=== PATIENT | female | born 1995 | race Caucasian/White ===

== ENCOUNTER 2017-02-26 | Inpatient (IN) ==
[2017-03-03] MEDS ORDERED: LIDOCAINE 1% (10mg/ml) 2mL INJ PF SDV ID PRN (16:05)
[2017-03-03] MEDS ORDERED: MAG-AL + SIM ORAL LIQUID 30ml PO PRN (16:05)
[2017-03-03] MEDS ORDERED: CALCIUM CARBONATE Chewable 500mg TABLET PO PRN (16:05)
[2017-03-03] MEDS ORDERED: CARBOPROST 250 MCG/ML INJECTION IM PRN (16:05)
[2017-03-03] MEDS ORDERED: METHYLERGONOVINE 0.2 MG/ML INJECTION IM PRN (16:05)
[2017-03-03] MEDS ORDERED: ACETAMINOPHEN 500 MG TABLET PO PRN (16:05)
[2017-03-03] MEDS ORDERED: SALINE FLUSH 10ml SYRINGE IV PRN ×2 (16:09→18:41)
[2017-03-03] MEDS ORDERED: ZOLPIDEM 5 MG TABLET PO PRN (16:09)
[2017-03-03] MEDS: Oxycodone/Acetaminophen 5/325 1 TAB PO PRN ×2 (18:35→22:35)
[2017-03-03 20:04] VITALS: BMI 29.7
--- NOTE | 2017-03-04 05:54 | Labor and Delivery Note ---
- Labor and Delivery Labor and Delivery: Pt slept. Acuna bulb came out when she got up. Breakfast, then start oxytocin.
[2017-03-04] MEDS ORDERED: OXYTOCIN DRIP 30 UNIT/500 ML ML IV PRN (06:45)
[2017-03-04] MEDS ORDERED: D5LR 1,000 ML IV PRN (06:45)
[2017-03-04] MEDS: LR 1,000 ML IV PRN ×3 (06:56→11:50)
[2017-03-04] MEDS ORDERED: CARBOPROST 250 MCG/ML INJECTION IM PRN (08:35)
[2017-03-04] MEDS ORDERED: MAG-AL + SIM ORAL LIQUID 30ml PO PRN ×2 (08:35→08:42)
[2017-03-04] MEDS ORDERED: METHYLERGONOVINE 0.2 MG/ML INJECTION IM PRN (08:35)
[2017-03-04] MEDS ORDERED: CALCIUM CARBONATE Chewable 500mg TABLET PO PRN ×2 (08:35→16:05)
[2017-03-04] MEDS ORDERED: BUTORPHANOL 2 MG/ML INJECTION IVP PRN ×3 (08:35→08:51)
[2017-03-04] MEDS ORDERED: ACETAMINOPHEN 500 MG TABLET PO PRN ×2 (08:35→16:05)
--- NOTE | 2017-03-04 10:11 | Anesthesia Preoperative Report ---
Anesthesia Epidural/Spinal Rec - Date and Time Date: 03/04/17 Preoperative Diagnosis: Term Labor SROM Procedure: Labor Epidural Plan: Epidural - Vital Signs Vital Signs: Temperature 97.9 F 03/03/17 21:20 Pulse Rate 73 03/03/17 21:20 Respiratory Rate 18 03/03/17 21:20 Blood Pressure 103/61 03/03/17 21:20 Pulse Oximetry 99 03/03/17 16:15 /Para: P:0 - Medictaions & Allergies Inpatient Medications: Current Medications Acetaminophen (Tylenol) 500 - 1,000 mg PO Q4H PRN PRN Reason: Pain Acetaminophen (Tylenol) 500 - 1,000 mg PO Q4H PRN PRN Reason: Pain Al Hydroxide/Mg Hydroxide (Maalox Plus) 30 ml PO Q3H PRN PRN Reason: Indigestion Al Hydroxide/Mg Hydroxide (Maalox Plus) 30 ml PO Q3H PRN PRN Reason: Indigestion Al Hydroxide/Mg Hydroxide (Maalox Plus) 30 ml PO Q3H PRN PRN Reason: Indigestion Butorphanol Tartrate (Stadol Inj) 1 mg IVP Q1H PRN Last Admin: 03/04/17 08:52 Dose: 1 mg Calcium Carbonate (Tums) 500 - 1,000 mg PO Q2H PRN PRN Reason: Indigestion Calcium Carbonate (Tums) 500 - 1,000 mg PO Q2H PRN PRN Reason: Indigestion Carboprost Tromethamine (Hemabate) 250 mcg IM O PRN PRN Reason: .Downtime Carboprost Tromethamine (Hemabate) 250 mcg IM O PRN PRN Reason: .Downtime Lactated Ringer's (Lactated Ringers) 1,000 mls @ 999 mls/hr IV .Q1H1M PRN Last Admin: 03/04/17 09:09 Dose: 999 mls/hr Dextrose/Lactated Ringer's (Dextrose 5%-Lactated Ringers) 1,000 mls @ 125 mls/ hr IV .Q8H PRN PRN Reason: Labor Last Admin: 03/04/17 06:58 Dose: 125 mls/hr Oxytocin (Pitocin Drip) 30 unit in 500 mls @ 2 mls/hr IV .Q24H PRN; Protocol PRN Reason: Induction/Augmentation Last Admin: 03/04/17 07:10 Dose: 2 mls/hr Lidocaine HCl (Xylocaine-Mpf 1% Vial) 0.2 mg ID O PRN PRN Reason: IV Start Methylergonovine Maleate (Methergine) 0.2 mg IM O PRN Methylergonovine Maleate (Methergine) 0.2 mg IM O PRN Misoprostol (Cytotec) 800 mcg MS ONCE PRN Misoprostol (Cytotec) 800 mcg MS ONCE PRN Misoprostol (Cytotec) 800 mcg MS ONCE PRN Oxycodone/Acetaminophen (Percocet 5/325) 1 tab PO Q4H PRN PRN Reason: Pain Last Admin: 03/03/17 22:35 Dose: 1 tab Sodium Chloride (Iv Flush) 10 - 80 ml IV PRN PRN PRN Reason: Flushing Last Admin: 03/04/17 06:53 Dose: 10 ml Sodium Chloride (Iv Flush) 10 - 80 ml IV PRN PRN PRN Reason: Flushing Zolpidem Tartrate (Ambien) 5 mg PO O PRN PRN Reason: Insomnia Last Admin: 03/03/17 21:25 Dose: 5 mg Allergies/Adverse Reactions: Allergies Allergy/AdvReac Type Severity Reaction Status Date / Time hydrocodone Allergy Intermediate Nausea and Verified 01/31/17 08:14 Vomiting - Home Medications Home Medications: Home Medications Medication Instructions Recorded Confirmed Type Pnv95/Ferrous Fumarate/FA 1 tab PO DAILY #0 11/03/15 History [ Tablet] - Medical History Neuro/Musculoskeletal: Reports: Seizures (isolated x1 as a child no meds no followup) Other History: Reports: Now DENIES: Anesthesia Reactions - Surgical History Anesthesia Reactions: None Hx Family Anesthesia Reaction: No History of Motion Sickness: No - Social History Smoking Status: Former smoker Substance Use Type: does not use - Pertinent Findings Lab Data: CBC and BMP 03/03/17 16:30 EKG Rhythm: Normal Sinus Rhythm - Physical Exam Respiratory Exam: lungs clear, bilateral breath sounds equal Cardiovascular Exam: regular rate and rhythm, no murmur - Airway Assessment Mallampati Score: II TMD: 3 Fingerbreadths Neck Extension: good Overall Assessment: may be difficult intubation - ASA ASA Score: 2 - Discussion Discussion: Discussed risks/options/alternatives of anesthesia and questions answered. Patient consents. Nursing pain assessment noted. Anesthesia Discussion: spouse Attestation Statement: Prior to the delivery of any anesthetic medication, I examined the patient, developed the plan, obtained the patient's consent and discussed the risk and benefits of the procedure with the patient/guardian.
[2017-03-04] MEDS ORDERED: DiphenhydrAMINE 50 MG/ML INJECTION IVP PRN ×2 (10:13→14:23)
[2017-03-04] MEDS ORDERED: ROPIVACAINE 1% 10MG/ML INJ 200 MG, SUFentanil 50 MCG in NS 100 ML EPI PRN (10:13)
[2017-03-04] MEDS ORDERED: ONDANSETRON 4 MG/2 ML INJECTION IVP PRN ×3 (10:13→21:02)
[2017-03-04] MEDS ORDERED: NALOXONE 0.4 MG/ML INJECTION IVP PRN (10:13)
--- NOTE | 2017-03-04 10:48 | Labor and Delivery Note ---
- Labor and Delivery Labor and Delivery: FHTs Cat 2 after a prolonged decel. Oxytocin back on with no change in cervical exam. Pt comfortable with epidural.
--- NOTE | 2017-03-04 13:24 | Labor and Delivery Note ---
- Labor and Delivery Labor and Delivery: Ctxs became regular off oxytocin but have now spaced out. Her cervix remains 3cm /80%/-3/posterior. FHTs Category 2. Will resume oxytocin, consider IUPM, cont to monitor FHR.
[2017-03-04] MEDS ORDERED: CITRIC ACID/SODIUM CITRATE 30ml PO ONE (14:01)
[2017-03-04] MEDS ORDERED: CEFAZOLIN PREMIX (MC ONLY) 2 GM/50 ML BAG IV ONE (14:01)
[2017-03-04] MEDS ORDERED: FAMOTIDINE PB 20 MG/50 ML BAG IV ONE (14:01)
[2017-03-04] MEDS ORDERED: LIDOCAINE 2%/EPI 1:200,000 20ml SDV PF ONE (14:05)
[2017-03-04] MEDS ORDERED: ONDANSETRON 4 MG/2 ML INJECTION ONE (14:06)
[2017-03-04] MEDS ORDERED: TRANEXAMIC ACID 1,000 MG in NS 100 ML IV ONE (14:09)
[2017-03-04] MEDS ORDERED: NALOXONE 2 MG/2 ML INJECTION PFS IVP PRN (14:23)
[2017-03-04] MEDS ORDERED: AZITHROMYCIN IV 500 MG in NS 250ml 250 ML IV SCH (14:35)
[2017-03-04] MEDS: OXYTOCIN BOLUS BAG 30 UNIT/500 ML ML IV SCH ×2 (14:54→15:20)
[2017-03-04] MEDS ORDERED: FentaNYL 100 MCG/2 ML INJECTION ONE (14:59)
[2017-03-04] MEDS ORDERED: DiphenhydrAMINE 50 MG/ML INJECTION ONE (15:26)
[2017-03-04] MEDS ORDERED: HYDROMORPHONE PCA 30mg/30ml VIAL IV PRN (15:39)
[2017-03-04] MEDS ORDERED: OXYTOCIN DRIP 30 UNIT/500 ML ML IV SCH (16:05)
[2017-03-04] MEDS ORDERED: SALINE FLUSH 10ml SYRINGE IV PRN (16:05)
[2017-03-04] MEDS ORDERED: DiphenhydrAMINE 25 MG CAPSULE PO PRN (16:05)
[2017-03-04] MEDS ORDERED: HYDROCORTISONE 2.5% CREAM 30gm RECTALLY PRN (16:05)
[2017-03-04] MEDS: D5LR 1,000 ML IV SCH (17:55)
[2017-03-04] MEDS: IBUPROFEN 800 MG TABLET PO SCH (18:04)
--- NOTE | 2017-03-04 18:28 | Operative Note ---
DATE OF DELIVERY 03/04/2017 PREOPERATIVE DIAGNOSIS Nonreassuring status remote from delivery. POSTOPERATIVE DIAGNOSIS Nonreassuring status remote from delivery. PROCEDURES Primary low transverse section. SURGEON Katty Black MD MRI MANAGER Piyush King MD ANESTHESIA Continuous epidural. ANESTHESIOLOGIST Tao Lizama CRNA EBL 800 mL. DESCRIPTION OF PROCEDURE Ms. Schmid was brought to the OR and placed on the OR table in a comfortable supine position with left lateral displacement. A Acuna catheter had previously been placed to dependent drain. The abdomen was prepped and draped in the usual sterile fashion. A Pfannenstiel skin incision was made with a sharp knife. This was carried down to fascia. Fascia was incised transversely. Fascia was then tented up. This was bluntly and sharply dissected free of rectus muscles. Rectus muscles were bluntly divided. The peritoneum was tented up and sharply entered, then extended vertically. The bladder blade was inserted. The bladder was noted to be well below our area of operation. A low transverse uterine incision was made with a sharp knife. The baby was delivered in the vertex NELI presentation with quite a bit of difficulty. I used bandage scissors and made a vertical T incision of only about 1 cm. I really feel that we stayed in the lower uterine segment with this and do not believe this would affect future deliveries. I then used bandage scissors and extended the skin incision a bit. There was a loose nuchal cord the baby delivered through. Baby was then bulb suctioned on the abdomen. Cord was doubly clamped and cut and the baby was given to Dr. Collazo and his team for care. This is a liveborn female. Her Apgars were 2/8/9. I believe the difficulty of the delivery and compression of the umbilical cord explains the initial difficulty in reviving baby but she did revive quickly fortunately. The placenta was then removed manually intact. It had a normal configuration and normal-appearing three-vessel cord. Because the patient was uncomfortable we did not exteriorize the uterus but swept the uterine cavity clear of membranes. We then reapproximated the transverse incision with a running locking 0-Monocryl. The vertical portion was reapproximated with a [id number] suture of 0-Monocryl. There was an area on the patient's right that was bleeding that was secured with a [id number] using the same 0- Monocryl. At this point hemostasis was well controlled. We reinspected very carefully and continued our closure. Peritoneum was reapproximated with a running nonlocking 2-0 Vicryl. Fascia was reapproximated with a running nonlocking 0-Vicryl. Skin edges were then reapproximated with a subcuticular style 3-0 undyed Vicryl. The wound was dressed with Steri-Strips and sterile dressing. Counts were correct postoperatively x 2. The urine remained clear and free-flowing throughout the procedure. Ms. Schmid was then transferred to recovery in stable condition and the baby is with her there. SANTOS
[2017-03-05] MEDS ORDERED: DOCUSATE CALCIUM 240 MG CAPSULE PO SCH (09:00)
[2017-03-05] MEDS: SIMETHICONE 80 MG CHEWABLE TABLET PO PRN ×2 (09:51→18:16)
[2017-03-05] MEDS: Oxycodone/Acetaminophen 5/325 1 TAB PO PRN ×4 (09:51→22:39)
--- NOTE | 2017-03-05 13:00 | OB/GYN Progress Note ---
OB-PP Progress Note - General PPD1 POD:: POD1 Maternal Group B Strep: Negative Maternal blood type: B+ Maternal Rubella Status: Immune - Subjective Date: 03/05/17 Lochia: Minimal Pain: contolled Voiding: voiding Nausea or Vomiting Present: No - Objective Vital Signs: Last Vital Signs Temp 97.6 F 03/05/17 09:30 Pulse 84 03/05/17 09:30 Resp 17 03/05/17 09:30 BP 106/72 03/05/17 09:30 Pulse Ox 99 03/05/17 09:30 Urine Output: good General: alert and oriented Abdomen: fundus firm, non-tender Incision: normal, no erythema, dry Extremities: non-tender Edema: none - Assessment Assessment: SP, Primary C/S - Plan Plan: routine care Expected date of discharge: 03/06/17
--- NOTE | 2017-03-05 13:02 | Discharge Instructions ---
Discharge Plan - Med Rec/Dispo Prescriptions: New Ibuprofen [Motrin] 800 mg PO Q8H #40 tab Docusate Calcium [Surfak] 240 mg PO DAILY #30 cap Oxycodone/Acetaminophen 5/325 [Percocet 5/325] 1 tab PO Q4H PRN #30 tab PRN Reason: Pain Continue Pnv95/Ferrous Fumarate/FA [ Tablet] 1 tab PO DAILY #0
[2017-03-05] MEDS: IBUPROFEN 800 MG TABLET PO SCH ×4 (13:51→22:38)
[2017-03-05] MEDS: SIMETHICONE 80 MG CHEWABLE TABLET PO SCH ×4 (15:29→22:38)
[2017-03-05] MEDS: D5LR 1,000 ML IV SCH ×2 (15:31→15:32)
--- NOTE | 2017-03-05 18:35 | Anesthesia Postoperative Note ---
- Date and Time Date: 03/05/17 Time: 18:35 - Status Patient Participated in Evaluation: Patient Participated in Person Vital Signs: Temperature 98.3 F 03/05/17 17:52 Pulse Rate 82 03/05/17 17:52 Respiratory Rate 18 03/05/17 17:52 Blood Pressure 115/69 03/05/17 17:52 Pulse Oximetry 99 03/05/17 17:52 Respiratory Function: Airway Patent Cardiovascular Function: Regular Pulse EKG: Sinus Rhythm Mental Status: Alert and Oriented Hydration: Taking PO Fluids Complications During Recover: None Apparent - Follow-Up Instructions Instructions: Per Surgeon
[2017-03-06 02:28] VITALS: RESP 16
[2017-03-06] MEDS: Oxycodone/Acetaminophen 5/325 1 TAB PO PRN (05:16)
[2017-03-06 05:36] VITALS: BP 125/78; PULSE 80; TEMP 96.5; O2SAT 99
== END 2017-03-06 10:45 | disposition home or self-care (01) | DRG 765 ==
LOC: MC 03-03 15:57
PROVIDERS: ADMIT Obstetrics & Gynecology; ATTEND Obstetrics & Gynecology